=== PATIENT | female | born 1990 | race Hispanic/Latino ===

== ENCOUNTER 2021-03-11 12:26 | Emergency (ER) | payer BC, MEDICAID ==
[2021-03-11] MEDS ORDERED: KETOROLAC TROMETHAMINE 30MG/ML IV ONE (12:27)
[2021-03-11] MEDS ORDERED: SODIUM CHLORIDE 0.9% 1000ML 1,000 ML IV ONE (12:27)
[2021-03-11 13:23] LABS: BASOPHILS % (AUTO) 0.6 % (0.0-5.0); EOSINOPHILS % (AUTO) 2.4 % (0.0-8.0); HEMATOCRIT 40.1 % (36-48); LYMPHOCYTES % (AUTO) 26.2 % (21.0-51.0); MEAN CORPUSCULAR HEMOGLOBIN 26.6 pg (27.0-33.0); MEAN CORPUSCULAR HGB CONC 31.9 g/dL (32.0-36.0); MEAN CORPUSCULAR VOLUME 83.2 fL (79-99); NEUTROPHILS % (AUTO) 60.5 % (40.0-77.0); PLATELET COUNT (AUTO) 301 K/uL (130-400); RED BLOOD CELL COUNT(AUTO) 4.82 MIL/uL (4.00-5.50); WHITE BLOOD COUNT (AUTO) 10.3 K/uL (4.8-10.8)
[2021-03-11 13:31] LABS: APPEARANCE,URINE Clear (CLEAR); BILIRUBIN,URINE Negative (NEGATIVE); COLOR,URINE Yellow (YELLOW); GLUCOSE, URINE (UA) Negative (NEGATIVE); KETONES,URINE Negative (NEGATIVE); LEUKOCYTE ESTERASE ,URINE Negative (NEGATIVE); NITRATE,URINE Negative (NEGATIVE); OCCULT BLOOD,URINE Negative (NEGATIVE); PH,URINE 5.5 (5.0-8.0); PROTEIN,URINE Negative (NEGATIVE); UROBILINOGEN,URINE 0.2 mg/dL (0.2-1.0)
[2021-03-11 13:32] LABS: HCG,QUAL RESULT NEGATIVE (NEGATIVE)
[2021-03-11 13:41] LABS: CREATININE 0.9 mg/dL (0.5-1.5); POTASSIUM 3.8 mmol/L (3.5-5.1)
[2021-03-11 13:43] LABS: BILIRUBIN,TOTAL 0.1 mg/dL (0.2-1.0); TOTAL PROTEIN, SERUM 6.1 g/dL (6.0-8.3)
[2021-03-11] MEDS ORDERED: DEXAMETHASONE SOD PHOSPHATE 4 MG/ML 1ML VIAL ONE (15:24)
== END 2021-03-11 15:50 | disposition home or self-care (01) ==
LOC: EDH 12:26
DX: J06.0 Acute laryngopharyngitis (principal); Z20.822 Contact with and (suspected) exposure to COVID-19; J45.909 Unspecified asthma, uncomplicated; Z98.890 Other specified postprocedural states; Z91.018 Allergy to other foods; Z88.8 Allergy status to other drugs, medicaments and biological substances; Z72.0 Tobacco use
CPT/HCPCS: 36415; 70491; 80053; 81003; 81025; 83690; 85025; 87426; 87804 ×2; 87880; 96361; 96374; 96375; 99285; J1100; J1885; J7030; U0003

== ENCOUNTER 2021-11-19 16:52 | Emergency (ER) | payer BC, OTHER ==
[~2021-11-19] VITALS: Ht 152.4 cm; Wt 81.6 kg
[2021-11-19 17:47] VITALS: BP 131/59
[2021-11-19] MEDS ORDERED: ONDA4TAB10 PO (18:05)
[2021-11-19] MEDS ORDERED: D-ME118S47 PO (18:05)
[2021-11-19] MEDS ORDERED: IBUP-2070 PO (18:05)
[2021-11-19] MEDS ORDERED: AZIT1PAC7 PO (18:05)
== END 2021-11-19 18:41 | disposition home or self-care (01) ==
LOC: EDH 16:52
DX: U07.1 COVID-19 (principal); I10 Essential (primary) hypertension
CPT/HCPCS: 87635; 87804 ×2; 87880; 99283; C9803